=== PATIENT | female | born 1940 | race Native Hawaiian/Other Pacific Islander ===

== ENCOUNTER 2017-04-25 11:50 | Outpatient (CLI) | payer OTHER, BC ==
[~2017-04-25 11:50] MED LIST: BRIMONIDINE0.2 % OP; CLONAZEP ODT2 MG PO; DORZOLAMIDE2 % OP; RENVELA800 MG PO; SENSIPAR30 MG PO
== END 2017-04-25 12:50 | disposition home or self-care (01) ==
LOC: RAD 11:50
DX: M54.5 Low back pain (principal); R26.89 Other abnormalities of gait and mobility; M25.552 Pain in left hip; M25.551 Pain in right hip

== ENCOUNTER 2017-10-02 05:41 | Emergency (ER) | payer OTHER, BC ==
[~2017-10-02] VITALS: Ht 152.4 cm; Wt 98.0 kg
[2017-10-02 06:06] VITALS: TEMP 97.9
[2017-10-02 06:32] LABS: PLATELET COUNT 159 K/uL (152-353)
[2017-10-02 07:07] LABS: PARTIAL THROMBOPLASTIN TIME 34.3 SECONDS (24.5-33.6)
[2017-10-02 07:45] VITALS: BP 118/46
== END 2017-10-02 08:00 | disposition home or self-care (01) ==
LOC: ED 05:41
DX: K62.5 Hemorrhage of anus and rectum (principal); N18.9 Chronic kidney disease, unspecified; K59.09 Other constipation
CPT/HCPCS: 36415; 74022; 80053; 82272; 85027; 85610; 85730; 99283